=== PATIENT | female | born 1990 | race African-American/Black ===

== ENCOUNTER 2023-10-16 08:51 | Emergency (ER) | payer OTHER ==
[~2023-10-16] VITALS: Ht 165.1 cm; Wt 115.7 kg
[2023-10-16 08:59] VITALS: BP 118/68; PULSE 97; RESP 19; TEMP 97.9; O2SAT 97
[2023-10-16 10:50] LABS: BASOPHILS % (AUTO) 0.8 % (0.0-2.0); EOSINOPHILS # (AUTO) 0.1 K/uL (0-0.4); EOSINOPHILS % (AUTO) 1.6 % (0.0-4.0); HEMATOCRIT 35.1 % (36-48); HEMOGLOBIN 11.5 g/dL (12.0-16.0); LYMPHOCYTES # (AUTO) 2.2 K/uL (2.5-16.5); LYMPHOCYTES % (AUTO) 40.2 % (20.5-51.1); MEAN CORPUSCULAR HEMOGLOBIN 23 pg (27-31); MEAN CORPUSCULAR HGB CONC 33 g/dL (33-37); MEAN CORPUSCULAR VOLUME 70.6 fL (80-94); MONOCYTES # (AUTO) 0.3 K/uL (0.8-1.0); MONOCYTES % (AUTO) 6.2 % (1.7-9.3); NEUTROPHILS # (AUTO) 2.8 K/uL (1.8-7.7); NEUTROPHILS % (AUTO) 51.2 % (42.2-75.2); PLATELET COUNT (AUTO) 339 K/uL (140-450); RED BLOOD CELL COUNT(AUTO) 4.97 MIL/uL (4.20-5.40); RED CELL DISTRIBUTION WIDTH 15.7 % (11.6-13.7); WHITE BLOOD COUNT (AUTO) 5.5 K/uL (4.8-10.8)
[2023-10-16 11:07] LABS: ANION GAP 7.6 (8-16); CALCIUM 8.8 mg/dL (8.5-10.1); CARBON DIOXIDE 32.6 mmol/L (21-32); CREATININE 0.7 mg/dL (0.6-1.3); POTASSIUM 5.2 mmol/L (3.5-5.1)
[2023-10-16] MEDS: NACL 0.9% 1,000 ML IV ONE (11:40)
[2023-10-16] MEDS ORDERED: IBUP-2213 PO (14:08)
[2023-10-16] MEDS: KETOROLAC 30 MG/ML VIAL IVP ONE (14:20)
[2023-10-16 14:27] VITALS: BP 138/92; PULSE 68; RESP 18; TEMP 97.5; O2SAT 97
== END 2023-10-16 14:27 | disposition home or self-care (01) ==
LOC: MED 08:51
DX: J02.9 Acute pharyngitis, unspecified (principal); Z79.899 Other long term (current) drug therapy
CPT/HCPCS: 36415; 70360; 70491; 80048; 85025; 96361; 96374; 99285; J1885; J7030; Q9967